=== PATIENT | male | born 1990 | race Caucasian/White ===

== ENCOUNTER 2016-04-15 06:19 | Emergency (ER) | payer BC ==
[~2016-04-15] VITALS: Ht 180.3 cm; Wt 97.5 kg
[2016-04-15 06:24] VITALS: Ht 180.3 cm; Wt 97.5 kg
[2016-04-15] MEDS ORDERED: CLINDAMYCIN 300 MG CAP PO ONE ×2 (07:30)
[2016-04-15] MEDS ORDERED: IBUPROFEN 800 MG TAB PO ONE (07:30)
[2016-04-15] MEDS ORDERED: IBUPROFEN 600 MG TAB PO ONE (07:30)
[2016-04-15] MEDS ORDERED: HYDROCODONE/APAP (5/325) TAB PO ONE (07:30)
[2016-04-15] MEDS: CLINDAMYCIN 300 MG CAP PO SCH ×2 (07:51→07:53)
[2016-04-15 08:08] VITALS: BP 119/57; PULSE 80; RESP 20; TEMP 99.2
[2016-04-15] MEDS ORDERED: IBUP800T25 PO (08:31)
[2016-04-15] MEDS ORDERED: HYDR-906 PO (08:31)
[2016-04-15] MEDS ORDERED: CLIN-73 PO (08:31)
--- NOTE | 2016-04-15 10:51 | ERD ---
ER Documentation Chief Complaint Date/Time DATE: 04/15/16 TIME: 10:47 Chief Complaint dental pain x 2days,fever HPI 25-year-old male with no significant past medical history presents to the ED complaining of having a sudden onset of fever and chills that started last night. Reports that he started to have a toothache that started 2 days ago. States that he lost the filling to his cavity 2 months ago and has had worsening pain since then. Reports that he has not followed up with a dentist. States that he is allergic to amoxicillin. Denies any drug use. Reports that he smokes aggressive and is a social drinker. Denies any chest pain, shortness of breath, abdominal pain, rhinorrhea, cough, ear pain, nausea, vomiting, diarrhea. ROS All systems reviewed and are negative except as per history of present illness. Medications Home Meds Active Scripts Hydrocodone/Acetaminophen ([place] 5-325 Tablet) 1 Each Tablet, 1 TAB PO Q6H Y for PAIN, #12 TAB Prov:SYDNEE FLORENTINO PA-C 04/15/16 Ibuprofen* (Motrin*) 800 Mg Tab, 800 MG PO Q6, #30 TAB Prov:SYDNEE FLORENTINO PA-C 04/15/16 Clindamycin Hcl* (Clindamycin Hcl*) 300 Mg Capsule, 300 MG PO QID for 10 Days, CAP Prov:SYDNEE FLORENTINO PA-C 04/15/16 Allergies Allergies: Coded Allergies: amoxicillin (Verified Allergy, Intermediate, hives, 04/15/16) PMhx/Soc Medical and Surgical Hx: pt denies Medical Hx History of Surgery: Yes (wisdom tooth removal ) Anesthesia Reaction: No Hx Neurological Disorder: No Hx Respiratory Disorders: No Hx Cardiac Disorders: No Hx Psychiatric Problems: No Hx Miscellaneous Medical Probl: No Hx Alcohol Use: Yes Hx Substance Use: No Hx Tobacco Use: No Smoking Status: Never smoker Physical Exam Vitals Vital Signs Date Time Temp Pulse Resp B/P Pulse Ox O2 Delivery O2 Flow Rate FiO2 04/15/16 08:08 99.2 80 20 119/57 97 Room Air 04/15/16 06:24 102.3 116 20 105/63 98 Physical Exam Const: [id number], well-nourished. In no acute distress. Head: Atraumatic, normocephalic Eyes: Normal Conjunctiva without injection. No purulent discharge. PERRL. EOMI ENT: Normal external ear. Ear canal without erythema. Tympanic membrane pearly duran without effusion or bulging. Nasal canal clear with normal turbinates. Moist oropharynx without tonsillar exudates. Non-erythematous pharynx. Uvula midline. Left second mandibular molar decaying with no signs of fluctuance or erythema. No bleeding noted. Tenderness to palpation of the left second mandibular molar. No drooling. No trismus. Neck: Full range of motion. No meningismus. No cervical lymphadenopathy. Resp: Clear to auscultation bilaterally. No wheezing, rhonchi, rales, or crackles. No accessory muscle use. No retractions. Cardio: Regular rate and rhythm. No murmurs, rubs or gallops. Abd: Soft, non tender, non distended. Normal bowel sounds. No palpable masses. No rebound tenderness. No guarding. Skin: No petechiae or rashes Back: No midline tenderness. No CVA tenderness. Ext: No cyanosis, or edema. Neur: Awake and alert. Psych: Normal Mood and Affect Results 24 hrs Current Medications Medications (Trade) Dose Ordered Sig/Pino Route PRN Reason Start Time Stop Time Status Last Admin Dose Admin Clindamycin HCl (Cleocin) 450 mg ONCE ONCE PO 04/15/16 07:30 04/15/16 07:31 Cancel Ibuprofen (Motrin) 800 mg ONCE ONCE PO 04/15/16 07:30 04/15/16 07:31 Cancel Acetaminophen/ Hydrocodone Bitart ([place] (5/325)) 1 tab ONCE ONCE PO 04/15/16 07:30 04/15/16 07:31 DC 04/15/16 07:17 Ibuprofen (Motrin) 800 mg ONCE ONCE PO 04/15/16 07:30 04/15/16 07:31 DC 04/15/16 07:26 Clindamycin HCl (Cleocin) 300 mg ONCE ONCE PO 04/15/16 07:30 04/15/16 07:31 DC 04/15/16 07:45 Clindamycin HCl (Cleocin) 300 mg ONCE PO 04/15/16 08:00 04/15/16 08:01 DC 04/15/16 07:51 Procedures/MDM This is a 25-year-old male with no significant past medical history resents to the ED complaining of dental pain that started 2 days ago associated with fever and chills. Patient has a fever of 102.3 and tachycardic at 116. Patient symptoms are likely due to an early possible dental abscess. Patient was treated here in the ED with clindamycin since he is allergic to penicillin. Patient was given ibuprofen and [place] with improvement with his pain. There is low suspicion for pneumonia, appendicitis, cholecystitis, mastoiditis, strep pharyngitis, retropharyngeal abscess, deep space infection, Alexx's angina, acute abdomen, pericarditis, or other emergent conditions. Discharge medications: [place], ibuprofen, clindamycin Follow up with primary care physician in 1-2 days. Instructed patient to return to the ED sooner for any worsening symptoms. Patient's questions were answered. Patient understood and agreed with discharge plan. Patient discharged stable. Departure Diagnosis: Primary Impression: Toothache Condition: Stable Patient Instructions: Dental Abscess, Dental Pain Referrals: [facility] YOU HAVE RECEIVED A MEDICAL SCREENING EXAM AND THE RESULTS INDICATE THAT YOU DO NOT HAVE A CONDITION THAT REQUIRES URGENT TREATMENT IN THE EMERGENCY DEPARTMENT. FURTHER EVALUATION AND TREATMENT OF YOUR CONDITION CAN WAIT UNTIL YOU ARE SEEN IN YOUR DOCTORS OFFICE WITHIN THE NEXT 1-2 DAYS. IT IS YOUR RESPONSIBILITY TO MAKE AN APPOINTMENT FOR FOLOW-UP CARE. IF YOU HAVE A PRIMARY DOCTOR --you should call your primary doctor and schedule an appointment IF YOU DO NOT HAVE A PRIMARY DOCTOR YOU CAN CALL OUR PHYSICIAN REFERRAL HOTLINE AT IF YOU CAN NOT AFFORD TO SEE A PHYSICIAN YOU CAN CHOSE FROM THE FOLLOWING [facility] [address] [facility] [address] [facility] [facility] [address] [facility] [address] [facility] [address] [facility] [facility]. [address] [facility] [place]. [facility] YOU HAVE RECEIVED A MEDICAL SCREENING EXAM AND THE RESULTS INDICATE THAT YOU DO NOT HAVE A CONDITION THAT REQUIRES URGENT TREATMENT IN THE EMERGENCY DEPARTMENT. FURTHER EVALUATION AND TREATMENT OF YOUR CONDITION CAN WAIT UNTIL YOU ARE SEEN IN YOUR DOCTORS OFFICE WITHIN THE NEXT 1-2 DAYS. IT IS YOUR RESPONSIBILITY TO MAKE AN APPOINTMENT FOR FOLOW-UP CARE. IF YOU HAVE A PRIMARY DOCTOR --you should call your primary doctor and schedule and appointment IF YOU DO NOT HAVE A PRIMARY DOCTOR YOU CAN CALL OUR PHYSICIAN REFERRAL HOTLINE AT . IF YOU CAN NOT AFFORD TO SEE A PHYSICIAN YOU CAN CHOSE FROM THE FOLLOWING [facility] INSTITUTIONS: [facility] [address] [place] [address] [facility] [address] [place] [address] [facility] [address] [place] [address] [facility] URGENT CARE/SPECIALTIES [facility] ([facility] walk in clinic) Additional Instructions: FOLLOW UP WITH YOUR PRIMARY CARE PHYSICIAN TOMORROW. Return to this facility if you are not improving as expected. SYDNEE FLORENTINO PA-C Apr 15, 2016 10:51
== END 2016-04-15 08:38 | disposition home or self-care (01) ==
LOC: FTE 06:19
DX: K08.89 Other specified disorders of teeth and supporting structures (principal)
CPT/HCPCS: 99284